=== PATIENT | female | born 1980 | race Caucasian/White ===

== ENCOUNTER 2016-05-15 13:17 | Emergency (ER) | END 2016-05-15 16:35 | disposition home or self-care (01) ==

== ENCOUNTER 2017-01-04 12:19 | Emergency (ER) | payer MEDICAID ==
[2017-01-04] MEDS ORDERED: KETOROLAC 60 MG/2 ML VIAL IM STA (13:18)
--- NOTE | 2017-01-04 13:21 | ED Physician Documentation ---
PD HPI UPPER EXT INJURY - Stated complaint Stated Complaint: BACK PX - Chief complaint Chief Complaint: Ext Problem - History obtained from History obtained from: Patient - History of Present Illness Location: Other (She has long-standing upper back pain which is worsened over the last few days because of a new job where she is lifting a lot. Suddenly got worse today while lifting a heavy bo.) Review of Systems Constitutional: denies: Fever, Chills Cardiac: denies: Chest pain / pressure, Palpitations Respiratory: denies: Dyspnea, Cough GI: denies: Abdominal Pain, Nausea : denies: Now [facility] PAST MEDICAL HISTORY - Past Medical History Past Medical History: Yes Cardiovascular: None Respiratory: None Neuro: Headache/migraine Endocrine/Autoimmune: None GI: Ulcers SHANK ARCHER: None : None HEENT: None Psych: None Musculoskeletal: Osteoarthritis Derm: None - Past Surgical History Past Surgical History: Yes /SHANK ARCHER: LEEP (Cervical surgery), Tubal ligation - Present Medications Home Medications: Ambulatory Orders Medication Instructions Recorded Confirmed Ibuprofen [Motrin] 600 mg PO Q8H PRN 05/15/16 01/04/17 Acetaminophen with Codeine 1 - 2 each PO Q6H PRN #15 tablet 01/04/17 [Tylenol with Codeine #3 Tablet] Cyclobenzaprine [Flexeril] 10 mg PO TID PRN #20 tablet 01/04/17 Methocarbamol [Robaxin] 500 mg PO Q8HR PRN 01/04/17 01/04/17 - Allergies Allergies/Adverse Reactions: Allergies Allergy/AdvReac Type Severity Reaction Status Date / Time levofloxacin [From Levaquin] Allergy Severe Respiratory Verified 01/04/17 12:26 - Social History Does the pt smoke?: Yes Smoking Status: Current every day smoker Does the pt drink ETOH?: Yes Does the pt have substance abuse?: Yes - Immunizations Immunizations are current?: Yes - POLST Patient has POLST: No PD ED PE NORMAL - Vitals Vital signs reviewed: Yes - General General: Alert and oriented X 3, No acute distress - Cardiac Cardiac: RRR, No murmur - Respiratory Respiratory: No respiratory distress, Clear bilaterally - Back Back: No spinal TTP, Other (She does have muscular tenderness to the parathoracic muscles) - Derm Derm: Normal color, Warm and dry - Extremities Extremities: Other (The patient has equal and normal Achilles and patellar reflexes bilaterally. Normal sensation in all areas of the legs. Patient denies saddle anesthesia. Normal strength in flexion-extension at the ankles, knees, and flexion of the hips.) Results - Vitals Vitals: Vital Signs - 24 hr 01/04/17 12:24 Temperature 36.3 C L Heart Rate 101 H Respiratory 16 Rate Blood Pressure 141/96 H O2 Saturation 100 Oxygen O2 Source Room air PD MEDICAL DECISION MAKING - ED course ED course: The [place] prescription monitoring program was queried with regard to this patient. No concerning findings were found. Departure - Departure Disposition: Home, Self Care Clinical Impression: Strain of back muscle Condition: Good Record reviewed to determine appropriate education?: Yes Instructions: ED Spasm Back No Trauma Prescriptions: Cyclobenzaprine [Flexeril] 10 mg PO TID PRN #20 tablet PRN Reason: Pain Acetaminophen with Codeine [Tylenol with Codeine #3 Tablet] 1 - 2 each PO Q6H PRN #15 tablet PRN Reason: pain Comments: Call your doctor to arrange a follow-up appointment, make the next available appointment. In the interim, return anytime if worse or if new symptoms develop. Your blood pressure was elevated today on check into the emergency department. This does not mean that you have hypertension, it is a common phenomenon to come to the emergency department and have elevated blood pressure. I recommend that she see her primary care physician within the week to have it rechecked when you are feeling better. Do not drink or drive while taking narcotic pain medication. Note that many narcotic pain relievers also contain Tylenol/acetaminophen. Please ensure that your total dose of acetaminophen from all sources does not exceed 3 g (3000 mg) per day. You may get constipated while on this medication. Take a stool softener such as Colace twice a day while you are on it. Also add an [id number] laxative such as senna or MiraLAX on any day that you do not have a bowel movement. If you received a narcotic pain medication or sedative while in the emergency department, do not drive for the next 24 hours. Forms: Activity restrictions
[2017-01-04] MEDS ORDERED: KETOROLAC 60 MG/2 ML VIAL ONE (13:33)
[2017-01-04 13:52] VITALS: BP 131/87
== END 2017-01-04 13:58 | disposition home or self-care (01) ==
LOC: ED 12:19
DX: S29.012A Strain of muscle and tendon of back wall of thorax, initial encounter (principal); X50.1XXA Overexertion from prolonged static or awkward postures, initial encounter; Y93.89 Activity, other specified; Y99.0 Civilian activity done for income or pay; F17.200 Nicotine dependence, unspecified, uncomplicated
CPT/HCPCS: 96372; 99282; 99283

== ENCOUNTER 2017-01-19 14:27 | Emergency (ER) | payer MEDICAID ==
[2017-01-19] MEDS ORDERED: KETOROLAC 60 MG/2 ML VIAL IM STA (15:25)
--- NOTE | 2017-01-19 15:29 | ED Physician Documentation ---
PD HPI BACK INJURY - Stated complaint Stated Complaint: LOW BACK PX - History obtained from History obtained from: Patient - History of Present Illness Location: Other (Developed sudden low back pain while bending over yesterday and has persistent sharp pain especially with motion ever since. There is no associated radiation, weakness, numbness, or tingling of the extremities or saddle anesthesia or incontinence. 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 CAPTAIN: None : None HEENT: None Psych: None Musculoskeletal: Osteoarthritis Derm: None - Past Surgical History Past Surgical History: Yes /SAILBOAT CAPTAIN: LEEP (Cervical surgery), Tubal ligation - Present Medications Home Medications: Ambulatory Orders Medication Instructions Recorded Confirmed Ibuprofen [Motrin] 600 mg PO Q8H PRN 05/15/16 01/04/17 Cyclobenzaprine [Flexeril] 10 mg PO TID PRN #20 tablet 01/04/17 Methocarbamol [Robaxin] 500 mg PO Q8HR PRN 01/04/17 01/04/17 diazePAM [Valium] 5 mg PO TID PRN #10 tablet 01/19/17 traMADol [Ultram] 50 mg PO Q4-6H PRN #10 tablet 01/19/17 - Allergies Allergies/Adverse Reactions: Allergies Allergy/AdvReac Type Severity Reaction Status Date / Time levofloxacin [From Levaquin] Allergy Severe Respiratory Verified 01/04/17 12:26 - Social History Does the pt smoke?: Yes Smoking Status: Current every day smoker Does the pt drink ETOH?: Yes Does the pt have substance abuse?: Yes - Immunizations Immunizations are current?: Yes - POLST Patient has POLST: No PD ED PE NORMAL - Vitals Vital signs reviewed: Yes - General General: Alert and oriented X 3, No acute distress, Other (Win[place] with motion) - Back Back: No spinal TTP, Other (Palpable high paralumbar back spasm) - Extremities Extremities: Other (The patient has equal and normal Achilles and patellar reflexes bilaterally. Normal sensation in all areas of the legs. Patient denies saddle anesthesia. Normal strength in flexion-extension at the ankles, knees, and flexion of the hips.) - Neuro Neuro: Alert and oriented X 3, Normal speech - Psych Psych: Normal mood, Normal affect Results - Vitals Vitals: Vital Signs - 24 hr 01/19/17 14:32 Temperature 37.0 C Heart Rate 90 Respiratory 18 Rate Blood Pressure 132/88 H O2 Saturation 100 Oxygen O2 Source Room air PD MEDICAL DECISION MAKING - ED course ED course: In the past we had some concerns about drug-seeking behavior, however she has not had any recent prescriptions for narcotics and no concerning findings on review of the [facility]. This patient has seemingly uncomplicated musculoskeletal back pain. The patient has no "red flags." Specifically denies IV drug use, fevers, incontinence, saddle anesthesia. Spinal epidural abscess was considered, given that the patient has no fever, is not diabetic, has no spinal tenderness, does not use IV drugs, and has no bilateral neurologic symptoms, the diagnosis of spinal epidural abscess is considered exceedingly unlikely. Departure - Departure Disposition: 01 Home, Self Care Clinical Impression: Strain of back muscle Condition: Good Record reviewed to determine appropriate education?: Yes Instructions: ED Low Back Pain Injury Prescriptions: traMADol [Ultram] 50 mg PO Q4-6H PRN #10 tablet PRN Reason: Pain diazePAM [Valium] 5 mg PO TID PRN #10 tablet PRN Reason: Spasms Comments: Do not take Flexeril with either of the prescription medications I am giving you. Your blood pressure was elevated today on check into the emergency department. This does not mean that you have hypertension, it is a common phenomenon to come to the emergency department and have elevated blood pressure. I recommend that she see your primary care physician within the week to have it rechecked when you are feeling better. Do not drink or drive while taking narcotic pain medication. Note that many narcotic pain relievers also contain Tylenol/acetaminophen. Please ensure that your total dose of acetaminophen from all sources does not exceed 3 g (3000 mg) per day. You may get constipated while on this medication. Take a stool softener such as Colace twice a day while you are on it. Also add an [id number] laxative such as senna or MiraLAX on any day that you do not have a bowel movement. If you received a narcotic pain medication or sedative while in the emergency department, do not drive for the next 24 hours.
[2017-01-19] MEDS ORDERED: KETOROLAC 60 MG/2 ML VIAL ONE (15:35)
[2017-01-19 15:51] VITALS: BP 133/95
== END 2017-01-19 15:49 | disposition home or self-care (01) ==
LOC: ED 14:27
DX: S39.012A Strain of muscle, fascia and tendon of lower back, initial encounter (principal); X50.1XXA Overexertion from prolonged static or awkward postures, initial encounter; F17.200 Nicotine dependence, unspecified, uncomplicated
CPT/HCPCS: 96372; 99283

== ENCOUNTER 2017-03-04 14:32 | Emergency (ER) | payer MEDICAID ==
[2017-03-04 14:44] VITALS: BP 136/93
--- NOTE | 2017-03-04 15:01 | ED Physician Documentation ---
PD HPI SKIN - Stated complaint Stated Complaint: RASH - Chief complaint Chief Complaint: Wound - History obtained from History obtained from: Patient - History of Present Illness Timing - onset: Other (Few days worth of itchy and annoying rash to the hands. She thinks it might be stress related. No throat swelling or shortness of breath.) Review of Systems Constitutional: denies: Fever, Chills Cardiac: denies: Palpitations Respiratory: denies: Dyspnea, Cough : denies: Now [facility] PAST MEDICAL HISTORY - Past Medical History Past Medical History: Yes Cardiovascular: None Respiratory: None Neuro: Headache/migraine Endocrine/Autoimmune: None GI: Ulcers FOLLOW UP MANAGER: None : None HEENT: None Psych: None Musculoskeletal: Osteoarthritis Derm: None - Past Surgical History Past Surgical History: Yes /FOLLOW UP MANAGER: LEEP (Cervical surgery), Tubal ligation - Present Medications Home Medications: Ambulatory Orders Medication Instructions Recorded Confirmed Ibuprofen [Motrin] 600 mg PO Q8H PRN 05/15/16 03/04/17 Cyclobenzaprine [Flexeril] 10 mg PO TID PRN #20 tablet 01/04/17 03/04/17 Triamcinolone 0.1% Oint [Kenalog 1 applic TOP TID 10 Days #1 bag 03/04/17 0.1% Oint] - Allergies Allergies/Adverse Reactions: Allergies Allergy/AdvReac Type Severity Reaction Status Date / Time levofloxacin [From Levaquin] Allergy Severe Respiratory Verified 03/04/17 14:44 - Social History Does the pt smoke?: Yes Smoking Status: Current every day smoker Does the pt drink ETOH?: Yes Does the pt have substance abuse?: Yes - Immunizations Immunizations are current?: Yes - POLST Patient has POLST: No PD ED PE NORMAL - Vitals Vital signs reviewed: Yes - General General: Alert and oriented X 3, No acute distress - HEENT HEENT: Pharynx benign - Derm Derm: Other (She has dyshidrotic eczema that is mild to moderate to both hands.) - Neuro Neuro: Alert and oriented X 3, Normal speech - Psych Psych: Normal mood, Normal affect Results - Vitals Vitals: Vital Signs - 24 hr 03/04/17 14:39 Temperature 36.3 C L Heart Rate 81 Respiratory 16 Rate Blood Pressure 136/93 H O2 Saturation 100 Oxygen O2 Source Room air Departure - Departure Disposition: 01 Home, Self Care Clinical Impression: Dyshidrotic eczema Condition: Good Record reviewed to determine appropriate education?: Yes Instructions: ED Dermatitis Atopic Eczema Prescriptions: Triamcinolone 0.1% Oint [Kenalog 0.1% Oint] 1 applic TOP TID 10 Days #1 bag Comments: Buy some cotton garden gloves, wear them at night after you put the cream on. Call your doctor to arrange a follow-up appointment, make the next available appointment. In the interim, return anytime if worse or if new symptoms develop. Your blood pressure was elevated today on check into the emergency department. This does not mean that you have hypertension, it is a common phenomenon to come to the emergency department and have elevated blood pressure. I recommend that you see your primary care physician within the week to have it rechecked when you are feeling better. Forms: Activity restrictions
== END 2017-03-04 15:09 | disposition home or self-care (01) ==
LOC: ED 14:32
DX: L30.1 Dyshidrosis [pompholyx] (principal); R03.0 Elevated blood-pressure reading, without diagnosis of hypertension
CPT/HCPCS: 99283

== ENCOUNTER 2017-05-12 16:22 | Emergency (ER) | payer MEDICAID ==
[2017-05-12 16:28] VITALS: BP 146/97
== END 2017-05-12 17:30 | disposition left against medical advice (07) ==
LOC: ED 16:22
DX: Z53.21 Procedure and treatment not carried out due to patient leaving prior to being seen by health care provider (principal)

== ENCOUNTER 2017-08-13 08:00 | Outpatient (CLI) | payer MEDICAID | END 2017-08-13 23:59 | disposition home or self-care (01) | LOC: LAB.R 08:00 | PROVIDERS: ATTEND Obstetrics & Gynecology | DX: Z11.3 Encounter for screening for infections with a predominantly sexual mode of transmission (principal); Z20.5 Contact with and (suspected) exposure to viral hepatitis | CPT/HCPCS: 87491; 87591 ==

== ENCOUNTER 2017-08-29 14:21 | Outpatient (CLI) | payer MEDICAID ==
[2017-08-30 13:32] LABS: HEPATITIS C ANTIBODY NON-REACTIVE (NON-REACTIVE)
[2017-08-30 15:01] LABS: HEPATITIS B SURFACE ANTIGEN NON-REACTIVE (NON-REACTIVE)
== END 2017-08-29 14:22 | disposition home or self-care (01) ==
LOC: LAB 14:21
PROVIDERS: ATTEND Obstetrics & Gynecology
DX: Z11.3 Encounter for screening for infections with a predominantly sexual mode of transmission (principal); Z20.5 Contact with and (suspected) exposure to viral hepatitis
CPT/HCPCS: 36415; 81599; 86592; 86803; 87340

== ENCOUNTER 2018-02-15 19:17 | Emergency (ER) | payer MEDICAID ==
[2018-02-15 19:29] VITALS: BP 133/89
[2018-02-15] MEDS ORDERED: IPRATROPIUM/ALBUTEROL 3 ML NEB INH STA (19:40)
[2018-02-15] MEDS ORDERED: BENZONATATE 100 MG CAPSULE PO STA (19:40)
[2018-02-15] MEDS ORDERED: predniSONE 20 MG TABLET PO STA (19:40)
--- NOTE | 2018-02-15 19:42 | ED Physician Documentation ---
PD HPI URI - Stated complaint Stated Complaint: COUGH/X3D - Chief complaint Chief Complaint: Resp - History obtained from History obtained from: Patient, Family - History of Present Illness Timing - onset: How many days ago (3) Timing duration: Days (3) Timing details: Gradual onset Pain level max: 4 Pain level now: 4 Associated symptoms: Fever (subjective), Nasal congestion, Rhinorrhea, Sore throat, Dry cough, Dyspnea (wheezing). No: Ear pain, Hemoptysis, Chest pain Contributing factors: Sick contact Improves by: Rest Worsened by: Activity, Breathing Recently seen: Not recently seen Review of Systems Constitutional: denies: Fever, Chills Nose: reports: Rhinorrhea / runny nose, Congestion Respiratory: reports: Dyspnea, Cough, Wheezing GI: denies: Abdominal Pain, Nausea, Vomiting, Diarrhea Skin: denies: Rash Musculoskeletal: denies: Neck pain, Back pain Neurologic: denies: Headache PD PAST MEDICAL HISTORY - Past Medical History Past Medical History: Yes Cardiovascular: None Respiratory: None Neuro: None Endocrine/Autoimmune: None GI: Ulcers ANALYSIS LEAD: None : None HEENT: None Psych: None Musculoskeletal: Osteoarthritis Derm: None - Past Surgical History Past Surgical History: Yes /ANALYSIS LEAD: LEEP (Cervical surgery), Tubal ligation - Present Medications Home Medications: Ambulatory Orders Medication Instructions Recorded Confirmed Ibuprofen [Motrin] 600 mg PO Q8H PRN 05/15/16 03/04/17 Cyclobenzaprine [Flexeril] 10 mg PO TID PRN #20 tablet 01/04/17 03/04/17 Triamcinolone 0.1% Oint [Kenalog 1 applic TOP TID 10 Days #1 bag 03/04/17 0.1% Oint] Albuterol Sulf [Ventolin Hfa 1 - 2 puffs INH Q4HR PRN #1 inhaler 02/15/18 Inhaler] Benzonatate [Tessalon Perle] 100 - 200 mg PO TID PRN #30 capsule 02/15/18 Cetirizine HCl/Pseudoephedrine 1 each PO BID PRN #30 tab.er.12h 02/15/18 [Zyrtec-D Tablet] predniSONE [Prednisone] 40 mg PO DAILY #10 tablet 02/15/18 - Allergies Allergies/Adverse Reactions: Allergies Allergy/AdvReac Type Severity Reaction Status Date / Time levofloxacin [From Levaquin] Allergy Severe Respiratory Verified 02/15/18 19:28 - Social History Does the pt smoke?: Yes Smoking Status: Current every day smoker Does the pt drink ETOH?: Yes Does the pt have substance abuse?: Yes - Immunizations Immunizations are current?: Yes - POLST Patient has POLST: No PD ED PE NORMAL - Vitals Vital signs reviewed: Yes - General General: Alert and oriented X 3, No acute distress - HEENT HEENT: Moist mucous membranes - Neck Neck: Supple, no meningeal sign - Cardiac Cardiac: RRR, Strong equal pulses - Respiratory Respiratory: No respiratory distress, Other (wheezing B) - Abdomen Abdomen: Soft, Non tender, Non distended - Back Back: No spinal TTP - Derm Derm: Warm and dry - Extremities Extremities: No edema - Neuro Neuro: Alert and oriented X 3 Results - Vitals Vitals: Vital Signs - 24 hr 02/15/18 19:25 Temperature 37.1 C Heart Rate 89 Respiratory 17 Rate Blood Pressure 133/89 H O2 Saturation 100 Oxygen O2 Source Room air PD MEDICAL DECISION MAKING - ED course Complexity details: reviewed results, re-evaluated patient, considered differential, d/w patient ED course: Patient is a 37-year-old female who presents to the emergency department with what appears to be a viral upper respiratory infection. She is well-appearing, nontoxic. Afebrile. Feels better after nebulizer treatment. Will continue supportive care and follow-up with her doctor. No evidence of pneumonia clinically. No hypoxia. Patient counseled regarding signs and symptoms for which I believe and urgent re-evaluation would be necessary. Patient with good understanding of and agreement to plan and is comfortable going home at this time This document was made in part using voice recognition software. While efforts are made to proofread this document, sound alike and grammatical errors may occur. - Sepsis Event Vital Signs: Vital Signs - 24 hr 02/15/18 19:25 Temperature 37.1 C Heart Rate 89 Respiratory 17 Rate Blood Pressure 133/89 H O2 Saturation 100 Oxygen O2 Source Room air Departure - Departure Disposition: 01 Home, Self Care Clinical Impression: Viral URI Condition: Good Instructions: ED URI Viral Follow-Up: Emilee Perez MD [Primary Care Provider] - Within 1 week Prescriptions: Albuterol Sulf [Ventolin Hfa Inhaler] 1 - 2 puffs INH Q4HR PRN #1 inhaler PRN Reason: Shortness Of Air/Wheezing Benzonatate [Tessalon Perle] 100 - 200 mg PO TID PRN #30 capsule PRN Reason: Cough Cetirizine HCl/Pseudoephedrine [Zyrtec-D Tablet] 1 each PO BID PRN #30 tab.er.12h PRN Reason: Nasal Congestion predniSONE [Prednisone] 40 mg PO DAILY #10 tablet Comments: Return if you worsen. Take the medications as prescribed. This cough will likely at least 2 weeks. Forms: Activity restrictions Discharge Date/Time: 02/15/18 20:12
[2018-02-15] MEDS ORDERED: ONDANSETRON ODT 4 MG TABLET TL STA (20:05)
== END 2018-02-15 20:12 | disposition home or self-care (01) ==
LOC: ED 19:17
DX: J06.9 Acute upper respiratory infection, unspecified (principal); B34.9 Viral infection, unspecified; F17.200 Nicotine dependence, unspecified, uncomplicated
CPT/HCPCS: 94640; 94664; 99283; A9270; J7512; Q0162

== ENCOUNTER 2018-11-12 14:50 | Emergency (ER) | payer MEDICAID | END 2018-11-12 14:58 | disposition left against medical advice (07) | LOC: ED 14:50 | DX: Z53.21 Procedure and treatment not carried out due to patient leaving prior to being seen by health care provider (principal) ==

== ENCOUNTER 2018-11-13 15:02 | Emergency (ER) | payer MEDICAID ==
[2018-11-13 15:10] VITALS: BP 130/76
[2018-11-13] MEDS ORDERED: IPRATROPIUM/ALBUTEROL 3 ML NEB INH STA (15:25)
[2018-11-13] MEDS ORDERED: predniSONE 20 MG TABLET PO STA (15:25)
[2018-11-13] MEDS ORDERED: PSEUDOEPHEDRINE 30 MG TABLET PO STA (15:28)
--- NOTE | 2018-11-13 15:31 | ED Physician Documentation ---
History of Present Illness - Stated complaint Stated Complaint: SINUS PX/HEADACHE - Chief complaint Chief Complaint: Heent - History obtained from History obtained from: Patient - History of Present Illness Timing: How many days ago (3) Pain level max: 5 Pain level now: 3 Improved by: rest Worsened by: exertion - Additonal information Additional information: 30-year-old female presents to the emergency department with rhinorrhea, congestion and coughing for the past 2 to 3 days. Has been taking Tylenol Cold without relief. No fevers. No vomiting. No abdominal pain. Mild sore throat. Denies any possibility of . 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: None : None HEENT: None Psych: None Musculoskeletal: Osteoarthritis Derm: None - Past Surgical History Past Surgical History: Yes /WATCH PARTS GRINDER: LEEP (Cervical surgery), Tubal ligation - Present Medications Home Medications: Ambulatory Orders Medication Instructions Recorded Confirmed Albuterol Sulf [Ventolin Hfa 1 - 2 puffs INH Q4HR PRN #1 inhaler 11/13/18 Inhaler] Benzonatate [Tessalon Perle] 100 - 200 mg PO TID PRN #30 capsule 11/13/18 Cetirizine HCl/Pseudoephedrine 1 each PO BID PRN #30 tab.er.12h 11/13/18 [Zyrtec-D Tablet] predniSONE [Deltasone] 10 mg PO [id number] #42 tab 11/13/18 - Allergies Allergies/Adverse Reactions: Allergies Allergy/AdvReac Type Severity Reaction Status Date / Time levofloxacin [From Levaquin] Allergy Severe Respiratory Verified 11/13/18 15:14 - Social History Does the pt smoke?: Yes Smoking Status: Current every day smoker Does the pt drink ETOH?: Yes Does the pt have substance abuse?: Yes Substance Use and Type: Marijuana - Immunizations Immunizations are current?: Yes - POLST Patient has POLST: No PD ED PE NORMAL - Vitals Vital signs reviewed: Yes - General General: Alert and oriented X 3, No acute distress - HEENT HEENT: Ears normal, Moist mucous membranes, Pharynx benign, Other (Mild sinus tenderness) - Neck Neck: Supple, no meningeal sign - Cardiac Cardiac: RRR - Respiratory Respiratory: No respiratory distress, Other (Wheezing bilaterally) - Abdomen Abdomen: Soft, Non tender, Non distended - Derm Derm: Warm and dry - Neuro Neuro: Alert and oriented X 3 Results - Vitals Vitals: Vital Signs - 24 hr 11/13/18 15:06 Temperature 36.5 C Heart Rate 94 Respiratory 16 Rate Blood Pressure 130/76 O2 Saturation 100 Oxygen O2 Source Room air PD MEDICAL DECISION MAKING - ED course Complexity details: reviewed old records, reviewed results, re-evaluated patient, considered differential, d/w patient ED course: 38-year-old female with what appears to be a viral URI with wheezing. Will place on steroids as well as decongestants. Will also place on cough medication. Will refill her albuterol. Feels better after nebulizer treatment here. No indication for antibiotics at this time. Patient counseled regarding signs and symptoms for which I believe and urgent re-evaluation would be necessary. Patient with good understanding of and agreement to plan and is co mfortable going home at this time This document was made in part using voice recognition software. While efforts are made to proofread this document, sound alike and grammatical errors may occur. Departure - Departure Disposition: 01 Home, Self Care Clinical Impression: Viral URI with cough Condition: Good Instructions: ED URI Viral W Wheezing Follow-Up: Emilee Perez MD [Primary Care Provider] - Within 1 week Prescriptions: Albuterol Sulf [Ventolin Hfa Inhaler] 1 - 2 puffs INH Q4HR PRN #1 inhaler PRN Reason: Shortness Of Air/Wheezing Benzonatate [Tessalon Perle] 100 - 200 mg PO TID PRN #30 capsule PRN Reason: Cough Cetirizine HCl/Pseudoephedrine [Zyrtec-D Tablet] 1 each PO BID PRN #30 tab.er.12h PRN Reason: nasal congestion predniSONE [Deltasone] 10 mg PO [id number] #42 tab Comments: Return if you worsen. Follow-up with your doctor for further care. Drink plenty of fluids and rest. Forms: Activity restrictions
== END 2018-11-13 16:04 | disposition home or self-care (01) ==
LOC: ED 15:02
DX: J06.9 Acute upper respiratory infection, unspecified (principal); F17.200 Nicotine dependence, unspecified, uncomplicated
CPT/HCPCS: 94640; 99283; A9270; J7512

== ENCOUNTER 2019-02-10 11:16 | Emergency (ER) | payer MEDICAID ==
[2019-02-10 11:22] VITALS: BP 146/90
[2019-02-10 12:05] LABS: BASOPHILS # (AUTO) 0.1 10^3/uL (0.0-0.1); BASOPHILS % (AUTO) 0.8 %; EOSINOPHILS # (AUTO) 0.2 10^3/uL (0.0-0.7); EOSINOPHILS % (AUTO) 2.4 %; HGB - HEMOGLOBIN 13.7 g/dL (12.0-16.0); LYMPHOCYTES # (AUTO) 2.3 10^3/uL (1.5-3.5); LYMPHOCYTES % (AUTO) 31.7 %; MEAN CORPUSCULAR HEMOGLOBIN 30.7 pg (27.0-31.0); MEAN CORPUSCULAR HGB CONC 32.6 g/dL (32.0-36.0); MEAN CORPUSCULAR VOLUME 94.2 fL (81.0-99.0); MEAN PLATELET VOLUME 9.3 fL (7.9-10.8); MONOCYTES # (AUTO) 0.5 10^3/uL (0.0-1.0); MONOCYTES % (AUTO) 6.5 %; NEUTROPHILS # (AUTO) 4.2 10^3/uL (1.5-6.6); NEUTROPHILS % (AUTO) 58.3 %; PLT - PLATELET COUNT 313 10^3/uL (130-450); RED BLOOD COUNT 4.46 10^6/uL (4.20-5.40); RED CELL DISTRIBUTION WIDTH 12.9 % (12.0-15.0); WHITE BLOOD COUNT 7.1 x10^3/uL (4.8-10.8)
[2019-02-10 12:09] LABS: BILIRUBIN,URINE NEGATIVE (NEGATIVE); GLUCOSE, URINE (UA) NEGATIVE (NEGATIVE); KETONES,URINE (UA) NEGATIVE (NEGATIVE); LEUKOCYTE ESTERASE, URINE TRACE (NEGATIVE); NITRITE,URINE POSITIVE (NEGATIVE); OCCULT BLOOD,URINE NEGATIVE (NEGATIVE); PH,URINE 6.5 PH (5.0-7.5); PROTEIN,URINE NEGATIVE (NEGATIVE); UROBILINOGEN,URINE 0.2 (NORMAL) E.U./dL (NORMAL)
[2019-02-10 12:11] LABS: CLARITY,URINE HAZY (CLEAR)
[2019-02-10 12:12] LABS: HCG UR QUAL NEGATIVE
[2019-02-10 12:16] LABS: ALBUMIN 3.7 g/dL (3.2-5.5); ALBUMIN/GLOBULIN RATIO 1.4 (1.0-2.2); BILIRUBIN,TOTAL 0.2 mg/dL (0.2-1.0); CALCIUM 8.6 mg/dL (8.5-10.3); CREATININE 0.6 mg/dL (0.4-1.0); TOTAL PROTEIN 6.3 g/dL (6.7-8.2)
[2019-02-10 12:22] LABS: RBC,URINE 0-5 /HPF (0-5)
[2019-02-10 12:23] LABS: AMORPHOUS SEDIMENT,UR Few /LPF; BACTERIA,URINE Many /HPF (None Seen); SQUAMOUS EPITHELIAL CELL,UR MANY Squamous (<= Few)
--- NOTE | 2019-02-10 12:55 | ED Physician Documentation ---
PD HPI NVD - Stated complaint Stated Complaint: SIDE PAIN, PAIN WITH URINATION - Chief complaint Chief Complaint: Abd Pain - History obtained from History obtained from: Patient - History of Present Illness Timing - onset: How many days ago (2-3) Timing - duration: Days (2-3) Timing - details: Gradual onset Pain level max: 4 Pain level now: 3 Associated symptoms: Abdominal pain (suprapubic), Dysuria. 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 : None HEENT: None Psych: None Musculoskeletal: Osteoarthritis Derm: None - Past Surgical History Past Surgical History: Yes /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: LEEP (Cervical surgery), Tubal ligation - Present Medications Home Medications: Ambulatory Orders Medication Instructions Recorded Confirmed Albuterol Sulf [Ventolin Hfa 1 - 2 puffs INH Q4HR PRN #1 inhaler 11/13/18 Inhaler] Benzonatate [Tessalon Perle] 100 - 200 mg PO TID PRN #30 capsule 11/13/18 Cetirizine HCl/Pseudoephedrine 1 each PO BID PRN #30 tab.er.12h 11/13/18 [Zyrtec-D Tablet] predniSONE [Deltasone] 10 mg PO [id number] #42 tab 11/13/18 cephALEXin [Cephalexin] 500 mg PO QID #20 tablet 02/10/19 - Allergies Allergies/Adverse Reactions: Allergies Allergy/AdvReac Type Severity Reaction Status Date / Time levofloxacin [From Levaquin] Allergy Severe Respiratory Verified 02/10/19 11:22 - Social History Does the pt smoke?: Yes Smoking Status: Current every day smoker Does the pt drink ETOH?: Yes Does the pt have substance abuse?: Yes - Immunizations Immunizations are current?: Yes - POLST Patient has POLST: No PD ED PE NORMAL - Vitals Vital signs reviewed: Yes - General General: Alert and oriented X 3, No acute distress - HEENT HEENT: Moist mucous membranes - Neck Neck: Supple, no meningeal sign - Cardiac Cardiac: RRR - Respiratory Respiratory: No respiratory distress, Clear bilaterally - Abdomen Abdomen: Other (Mild suprapubic tender to palpation. No peritoneal signs.) - Back Back: No CVA TTP - Derm Derm: Warm and dry - Neuro Neuro: Alert and oriented X 3 - Psych Psych: Normal mood, Normal affect Results - Vitals Vitals: Vital Signs - 24 hr 02/10/19 11:21 Temperature 36.5 C Heart Rate 90 Respiratory 20 Rate Blood Pressure 146/90 H O2 Saturation 100 Oxygen O2 Source Room air - Labs Labs: Laboratory Tests 02/10/19 02/10/19 02/10/19 11:20 11:57 11:57 WBC 7.1 RBC 4.46 Hgb 13.7 Hct 42.0 MCV 94.2 MCH 30.7 MCHC 32.6 RDW 12.9 Plt Count 313 MPV 9.3 Neut # (Auto) 4.2 Lymph # (Auto) 2.3 [place] # (Auto) 0.5 Eos # (Auto) 0.2 Baso # (Auto) 0.1 Absolute Nucleated RBC 0.00 Nucleated RBC % 0.0 Sodium 140 Potassium 4.4 Chloride 107 Carbon Dioxide 26 Anion Gap 7.0 BUN 12 Creatinine 0.6 Estimated GFR (MDRD) 112 Glucose 83 Calcium 8.6 Total Bilirubin 0.2 AST 19 ALT 14 Alkaline Phosphatase 43 Total Protein 6.3 L Albumin 3.7 Globulin 2.6 Albumin/Globulin Ratio 1.4 Lipase 20 L Urine Color LT. YELLOW Urine Clarity HAZY Urine pH 6.5 Ur Specific [place] 1.020 Urine Protein NEGATIVE Urine Glucose (UA) NEGATIVE Urine Ketones NEGATIVE Urine Occult Blood NEGATIVE Urine Nitrite POSITIVE H Urine Bilirubin NEGATIVE Urine Urobilinogen 0.2 (NORMAL) Ur Leukocyte Esterase TRACE H Urine RBC 0-5 Urine WBC 6-10 H Ur Squamous Epith Cells MANY Squamous H Amorphous Sediment Few Urine Bacteria Many H Ur Microscopic Review INDICATED Urine Culture Comments NOT INDICATED Urine HCG, Qual NEGATIVE PD MEDICAL DECISION MAKING - ED course Complexity details: reviewed results, considered differential, d/w patient ED course: Patient with a UTI. No evidence of pyelonephritis. No evidence of sepsis. Will place on antibiotics. Pt will follow-up with her doctor for further care. She is well-appearing, nontoxic. Patient counseled regarding signs and symptoms for which I believe and urgent re-evaluation would be necessary. Patient with good understanding of and agreement to plan and is comfortable going home at this time This document was made in part using voice recognition software. While efforts are made to proofread this document, sound alike and grammatical errors may occur. Departure - Departure Disposition: Home, Self Care Clinical Impression: UTI (urinary tract infection) Qualifiers: Urinary tract infection type: acute cystitis Hematuria presence: without hem aturia Qualified Code(s): N30.00 - Acute cystitis without hematuria Condition: Good Instructions: ED UTI Cystitis Female Follow-Up: Emilee Perez MD [Primary Care Provider] - As Needed Prescriptions: cephALEXin [Cephalexin] 500 mg PO QID #20 tablet Comments: Take all antibiotics until gone. Return if you worsen. Follow-up with your doctor as needed.
== END 2019-02-10 13:20 | disposition home or self-care (01) ==
LOC: ED 11:16
DX: N30.00 Acute cystitis without hematuria (principal); F17.200 Nicotine dependence, unspecified, uncomplicated
CPT/HCPCS: 36415; 80053; 81001; 81003; 81025; 83690; 85025; 87086; 99283; 99284

== ENCOUNTER 2019-08-29 01:05 | Outpatient (CLI) | payer MEDICAID | END 2019-08-29 01:06 | disposition critical access hospital (66) | LOC: EMS 01:05 | PROVIDERS: ATTEND Surgery | DX: R07.89 Other chest pain (principal); R06.02 Shortness of breath | CPT/HCPCS: A0425; A0427; A0999 ==

== ENCOUNTER 2019-08-29 01:37 | Emergency (ER) | payer MEDICAID ==
[2019-08-29] MEDS ORDERED: SODIUM CHLORIDE 0.9% 1,000 ML IV ONE (01:52)
[2019-08-29 02:01] LABS: BASOPHILS # (AUTO) 0.1 10^3/uL (0.0-0.1); BASOPHILS % (AUTO) 0.8 %; EOSINOPHILS # (AUTO) 0.1 10^3/uL (0.0-0.7); EOSINOPHILS % (AUTO) 1.2 %; HGB - HEMOGLOBIN 14.8 g/dL (12.0-16.0); LYMPHOCYTES # (AUTO) 3.2 10^3/uL (1.5-3.5); LYMPHOCYTES % (AUTO) 36.5 %; MEAN CORPUSCULAR HEMOGLOBIN 31.4 pg (27.0-31.0); MEAN CORPUSCULAR VOLUME 92.4 fL (81.0-99.0); MEAN PLATELET VOLUME 9.5 fL (7.9-10.8); MONOCYTES # (AUTO) 0.6 10^3/uL (0.0-1.0); MONOCYTES % (AUTO) 6.9 %; NEUTROPHILS # (AUTO) 4.7 10^3/uL (1.5-6.6); NEUTROPHILS % (AUTO) 54.1 %; PLT - PLATELET COUNT 347 10^3/uL (130-450); RED BLOOD COUNT 4.71 10^6/uL (4.20-5.40); RED CELL DISTRIBUTION WIDTH 13.3 % (12.0-15.0); WHITE BLOOD COUNT 8.7 x10^3/uL (4.8-10.8)
[2019-08-29 02:15] LABS: ALBUMIN 4.2 g/dL (3.2-5.5); ALBUMIN/GLOBULIN RATIO 1.4 (1.0-2.2); BILIRUBIN,TOTAL 0.4 mg/dL (0.2-1.0); CALCIUM 9.2 mg/dL (8.5-10.3); CREATININE 0.6 mg/dL (0.4-1.0); TOTAL PROTEIN 7.2 g/dL (6.7-8.2)
--- NOTE | 2019-08-29 02:38 | ED Physician Documentation ---
History of Present Illness - Stated complaint Stated Complaint: SOA/ CP - Chief complaint Chief Complaint: Cardiac - History obtained from History obtained from: Patient - Additonal information Additional information: Patient comes emergency department complaining of shortness of breath and anxiety with feeling of heart racing. She states that she had a beer and took an unknown pill which she thinks might of been fentanyl. She also did 2 lines of cocaine. Patient decided to go to bed shortly thereafter and then began to feel as though her heart was racing. This was approximately 30 minutes after doing the cocaine.No chest pain. Review of Systems Ten Systems: 10 systems reviewed and negative Constitutional: reports: Reviewed and negative Eyes: reports: Reviewed and negative Ears: reports: Reviewed and negative Nose: reports: Reviewed and negative Throat: reports: Reviewed and negative Cardiac: reports: Palpitations Respiratory: reports: Reviewed and negative GI: reports: Reviewed and negative : reports: Reviewed and negative Skin: reports: Reviewed and negative Musculoskeletal: reports: Reviewed and negative Neurologic: reports: Reviewed and negative Psychiatric: reports: Reviewed and negative Endocrine: reports: Reviewed and negative Immunocompromised: reports: Reviewed and negative PD PAST MEDICAL HISTORY - Past Medical History Past Medical History: Yes Cardiovascular: None Respiratory: None Neuro: None Endocrine/Autoimmune: None GI: Ulcers SAP 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: None : None HEENT: None Psych: None Musculoskeletal: Osteoarthritis Derm: None - Past Surgical History 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 Surgical History: Yes /SAP SPECIALIST: LEEP (Cervical surgery), Tubal ligation - Present Medications Home Medications: Ambulatory Orders Medication Instructions Recorded Confirmed Albuterol Sulf [Ventolin Hfa 1 - 2 puffs INH Q4HR PRN #1 inhaler 11/13/18 Inhaler] Benzonatate [Tessalon Perle] 100 - 200 mg PO TID PRN #30 capsule 11/13/18 Cetirizine HCl/Pseudoephedrine 1 each PO BID PRN #30 tab.er.12h 11/13/18 [Zyrtec-D Tablet] predniSONE [Deltasone] 10 mg PO [id number] #42 tab 11/13/18 cephALEXin [Cephalexin] 500 mg PO QID #20 tablet 02/10/19 - Allergies Allergies/Adverse Reactions: Allergies Allergy/AdvReac Type Severity Reaction Status Date / Time levofloxacin [From Levaquin] Allergy Severe Respiratory Verified 08/29/19 01:52 - Social History Does the pt smoke?: Yes Smoking Status: Current every day smoker Does the pt drink ETOH?: Yes Does the pt have substance abuse?: Yes - Immunizations Immunizations are current?: Yes - POLST Patient has POLST: No PD ED PE NORMAL - Vitals Vital signs reviewed: Yes - General General: Alert and oriented X 3, No acute distress, Well developed/nourished, Other (Pt appears slightly anxious) - HEENT HEENT: Atraumatic, PERRL, EOMI, Moist mucous membranes - Neck Neck: Supple, no meningeal sign - Cardiac Cardiac: RRR, No murmur, Strong equal pulses - Respiratory Respiratory: No respiratory distress, Clear bilaterally - Abdomen Abdomen: Normal bowel sounds, Soft, Non tender, Non distended - Derm Derm: Normal color, Warm and dry, No rash - Extremities Extremities: No deformity, No edema, No calf tenderness / cord - Neuro Neuro: Alert and oriented X 3, 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 management 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 consultant 2-12 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, No motor deficit, No sensory deficit, Normal speech - Psych Psych: Normal mood, Normal affect Results - Vitals Vitals: Vital Signs - 24 hr 08/29/19 08/29/19 01:40 02:39 Temperature 36.7 C Heart Rate 115 H 99 Respiratory 26 H 18 Rate Blood Pressure 132/90 H 129/84 H O2 Saturation 100 99 Oxygen O2 Source Room air - EKG (time done) 0146 Rate: Rate (enter#) (108) Rhythm: Sinus tachycardia, LAE [place]: Normal Intervals: Normal MS QRS: Normal Ischemia: Normal ST segments Compare to prior EKG: Old EKG unavailable - Labs Labs: Laboratory Tests 08/29/19 08/29/19 08/29/19 01:45 01:45 01:45 WBC 8.7 RBC 4.71 Hgb 14.8 Hct 43.5 MCV 92.4 MCH 31.4 H MCHC 34.0 RDW 13.3 Plt Count 347 MPV 9.5 Neut # (Auto) 4.7 Lymph # (Auto) 3.2 [place] # (Auto) 0.6 Eos # (Auto) 0.1 Baso # (Auto) 0.1 Absolute Nucleated RBC 0.00 Nucleated RBC % 0.0 Sodium 135 Potassium 3.0 L Chloride 97 L Carbon Dioxide 25 Anion Gap 13.0 BUN 12 Creatinine 0.6 Estimated GFR (MDRD) 112 Glucose 179 H Calcium 9.2 Total Bilirubin 0.4 AST 41 ALT 30 Alkaline Phosphatase 60 Troponin I High Sens 3.0 Total Protein 7.2 Albumin 4.2 Globulin 3.0 Albumin/Globulin Ratio 1.4 Lipase 22 PD MEDICAL DECISION MAKING - ED course Complexity details: reviewed results, re-evaluated patient, considered differential, d/w patient ED course: PT was worked up with labs and EKG, which were unremarkable. She was found to be calmer and feeling better, and I felt she was stable for d/c home. I have counseled her regarding the risks of cocaine and general drug use. Departure - Departure Disposition: 01 Home, Self Care Clinical Impression: Anxiety, Palpitations, Cocaine abuse Instructions: ED Drug Abuse General, ED Palpitations Discharge Date/Time: 08/29/19 02:46
[2019-08-29 02:39] VITALS: BP 129/84
== END 2019-08-29 02:46 | disposition home or self-care (01) ==
LOC: EDUNIT# → EDBD → ED 01:37
DX: F41.9 Anxiety disorder, unspecified (principal); R00.2 Palpitations; F14.10 Cocaine abuse, uncomplicated; F17.200 Nicotine dependence, unspecified, uncomplicated
CPT/HCPCS: 36415; 80053; 83690; 84484; 85025; 93005; 96360; 99284

== ENCOUNTER 2020-12-19 00:22 | Emergency (ER) | payer MEDICAID ==
[2020-12-19] MEDS ORDERED: ACETAMINOPHEN 325 MG TABLET PO STA (00:34)
[2020-12-19] MEDS ORDERED: KETOROLAC 30 MG/ML VIAL IM STA (02:18)
[2020-12-19] MEDS ORDERED: methocarbamoL 500 MG TABLET PO STA (02:18)
--- NOTE | 2020-12-19 02:19 | ED Physician Documentation ---
History of Present Illness - Stated complaint Stated Complaint: FELL OFF BOAT ONTO DOCK - Chief complaint Chief Complaint: Trauma Ch/Bk - History obtained from History obtained from: Patient - Additonal information Additional information: 40-year-old woman presents with sudden onset pain after slipping getting boat and hitting her left rib cage. Constant, aching, worse with deep breathing and cough, moderate severity. No other injuries. No shortness of breath. 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 : None HEENT: None Psych: None Musculoskeletal: Osteoarthritis Derm: None - Past Surgical History Past Surgical History: Yes /VICE PRESIDENT LENDING: LEEP (Cervical surgery), Tubal ligation - Present Medications Home Medications: Ambulatory Orders Medication Instructions Recorded Confirmed Albuterol Sulf [Ventolin Hfa 1 - 2 puffs INH Q4HR PRN #1 inhaler 11/13/18 Inhaler] Benzonatate [Tessalon Perle] 100 - 200 mg PO TID PRN #30 capsule 11/13/18 Cetirizine HCl/Pseudoephedrine 1 each PO BID PRN #30 tab.er.12h 11/13/18 [Zyrtec-D Tablet] predniSONE [Deltasone] 10 mg PO [id number] #42 tab 11/13/18 cephALEXin [Cephalexin] 500 mg PO QID #20 tablet 02/10/19 Amox/Clav 875/125 [Augmentin] 1 each PO Q12H #20 tablet 10/16/19 Hydrocodone/Acetaminophen 1 - 2 each PO Q6H PRN #10 tablet 10/16/19 [Hydrocodon-Acetaminophen 5-325] Ondansetron Odt [Zofran] 4 mg TL Q6H PRN #10 tablet 10/16/19 metroNIDAZOLE [Flagyl] 500 mg PO BID #20 tablet 10/16/19 Oxycodone HCl/Acetaminophen 1 each PO Q4H PRN #10 tablet 12/19/20 [Percocet 10-325 mg Tablet] - Allergies Allergies/Adverse Reactions: Allergies Allergy/AdvReac Type Severity Reaction Status Date / Time levofloxacin [From Levaquin] Allergy Severe Respiratory Verified 12/19/20 00:25 - Social History Does the pt smoke?: Yes Smoking Status: Current every day smoker Does the pt drink ETOH?: Yes Does the pt have substance abuse?: Yes - Immunizations Immunizations are current?: Yes - POLST Patient has POLST: No PD ED PE NORMAL - Vitals Vital signs reviewed: Yes - General General: Alert and oriented X 3, No acute distress, Well developed/nourished - HEENT HEENT: Atraumatic, PERRL, EOMI - Neck Neck: No bony TTP - Cardiac Cardiac: RRR, Other (Left lateral chest wall tender to palpation) - Respiratory Respiratory: No respiratory distress, Clear bilaterally - Abdomen Abdomen: Non tender, Non distended - Derm Derm: Normal color - Extremities Extremities: No deformity, Normal ROM s pain - Neuro Neuro: Alert and oriented X 3 Results - Vitals Vitals: Vital Signs - 24 hr 12/19/20 12/19/20 12/19/20 00:26 01:46 02:40 Temperature 36.5 C 36.5 C 36.6 C Heart Rate 100 99 89 Respiratory 16 16 17 Rate Blood Pressure 147/95 H 148/96 H 142/89 H O2 Saturation 100 100 99 Oxygen O2 Source Room air PD MEDICAL DECISION MAKING - ED course ED course: 40-year-old woman presents with left chest wall pain after a fall. X-rays noncontributory however I suspect occult fracture. Offered to have respiratory therapy see her and give her incentive spirometer but she declined saying she would prefer to go home and get some rest. Pain medication, education, and return precautions given. Departure - Departure Disposition: 01 Home, Self Care Clinical Impression: Rib pain on left side Condition: Good Instructions: ED Contusion Chest Wall Prescriptions: Oxycodone HCl/Acetaminophen [Percocet 10-325 mg Tablet] 1 each PO Q4H PRN #10 tablet PRN Reason: Pain Comments: X-rayHe was seen in the emergency department for pain along her chest wall. You did not break any ribs. Please take ibuprofen or Aleve 600 mg every 6 hours as needed for pain with a little snack. Return to the emergency department if you have any new or worsening symptoms or other concerns. Follow-up with your primary doctor this week. Discharge Date/Time: 12/19/20 02:53
[2020-12-19] MEDS ORDERED: oxyCODONE/ACET 5/325 Prepack 4 PO STA (02:32)
[2020-12-19 02:41] VITALS: BP 142/89
[2020-12-19] MEDS ORDERED: HYDROmorphone 0.5 MG/0.5 ML SYRINGE IM STA (02:43)
--- NOTE | 2020-12-19 08:03 | XRAY Report ---
PROCEDURE: Chest 2 View X-Ray INDICATIONS: L rib pain TECHNIQUE: 2 view(s) of the chest. COMPARISON: None. FINDINGS: Surgical changes and devices: None. Lungs and pleura: No pleural effusions or pneumothorax. Lungs are clear. Mediastinum: Mediastinal contours are normal. Heart size is normal. Bones and chest wall: No suspicious bony abnormalities. Age-appropriate degenerative changes are see n. No displaced rib fractures are seen. However, the inferior ribs are not well seen secondary to o verlying soft tissue. Soft tissues appear unremarkable. IMPRESSION: No displaced rib fracture or pneumothorax is seen. If there is strong clinical concern for a clinically significant rib fracture, please consider dedica tabitha rib series or CT for further evaluation. Note: No significant discrepancy from the preliminary report. Reviewed by: Jd Keller MD on 12/19/2020 7:02 AM CH[facility]STINA Approved by: Jd Keller MD on 12/19/2020 7:02 AM CHRISTINA Station ID: [id number]
== END 2020-12-19 02:53 | disposition home or self-care (01) ==
LOC: ED 00:22
DX: R07.81 Pleurodynia (principal); F17.200 Nicotine dependence, unspecified, uncomplicated
CPT/HCPCS: 71046; 96372; 96374; 99283; A9270; J1170

== ENCOUNTER 2020-12-20 17:43 | Emergency (ER) | payer MEDICAID ==
[2020-12-20] MEDS ORDERED: methocarbamoL 500 MG TABLET PO STA (18:31)
--- NOTE | 2020-12-20 18:41 | XRAY Report ---
PROCEDURE: Ribs w/PA Chest LT INDICATIONS: fall, L chest pain TECHNIQUE: 3 views of the left ribs were acquired, along with a single view chest. COMPARISON: CXR 12/19/2020. FINDINGS: Surgical changes and devices: None. Bones and chest wall: Left 8-9th rib fractures. Mild displacement. No suspicious bony lesions. Over lying soft tissues appear unremarkable. Lungs and pleura: No pleural effusions or pneumothorax. Lungs appear clear. Mediastinum: Mediastinal contours appear normal. Heart size is normal. IMPRESSION: Left 8-9th rib fractures identified. Reviewed by: Francisco Jhaveri MD on 12/20/2020 6:40 PM PDT Approved by: Francisco Jhaveri MD on 12/20/2020 6:40 PM PDT Station ID: [id number]
[2020-12-20] MEDS ORDERED: LIDOCAINE PATCH 5% TOP STA (18:47)
--- NOTE | 2020-12-20 18:50 | ED Physician Documentation ---
History of Present Illness - Stated complaint Stated Complaint: FALL - Chief complaint Chief Complaint: General - History obtained from History obtained from: Patient - History of Present Illness Timing: Yesterday Pain level max: 8 Pain level now: 8 - Additonal information Additional information: Patient is a 40-year-old female who fell off of a boat yesterday landed on a dock. Complains of left-sided rib pain. Worse with movement, better with rest. She states she had an x-ray and was told there were no rib fractures at that time seen. She states that the pain has continued today. She is taking Percocet for pain. Is requesting a muscle relaxant as well. No abdominal pain. No nausea or vomiting. No hematuria. 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 : None HEENT: None Psych: None Musculoskeletal: Osteoarthritis Derm: None - Past Surgical History Past Surgical History: Yes /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: LEEP (Cervical surgery), Tubal ligation - Present Medications Home Medications: Ambulatory Orders Medication Instructions Recorded Confirmed Oxycodone HCl/Acetaminophen 1 each PO Q4H PRN #10 tablet 12/19/20 12/20/20 [Percocet 10-325 mg Tablet] Aspirin/Acetaminophen/Caffeine 1 each PO Q6HR PRN 12/20/20 12/20/20 [Excedrin Migraine Caplet] Esomeprazole Magnesium [Nexium 20 mg PO DAILY 12/20/20 12/20/20 24Hr] Lidocaine Patch 5% [Lidoderm Patch] 1 patch TOP DAILY PRN #10 patch 12/20/20 methocarbamoL [Robaxin] 500 mg PO Q6H PRN #20 tablet 12/20/20 - Allergies Allergies/Adverse Reactions: Allergies Allergy/AdvReac Type Severity Reaction Status Date / Time levofloxacin [From Levaquin] Allergy Severe Respiratory Verified 12/19/20 00:25 - Social History Does the pt smoke?: Yes Smoking Status: Current every day smoker Does the pt drink ETOH?: Yes ETOH Use: Beer Does the pt have substance abuse?: No - Immunizations Immunizations are current?: Yes - POLST Patient has POLST: No PD ED PE NORMAL - Vitals Vital signs reviewed: Yes - General General: Alert and oriented X 3, No acute distress - HEENT HEENT: Atraumatic, PERRL, Moist mucous membranes - Neck Neck: Supple, no meningeal sign, No bony TTP - Cardiac Cardiac: RRR - Respiratory Respiratory: No respiratory distress, Clear bilaterally - Abdomen Abdomen: Soft, Non tender, Non distended - Back Back: No CVA TTP, No spinal TTP (No midline tenderness to palpation or percussion. No step-off or deformity. There is a bruise to the left flank.) - Derm Derm: Warm and dry - Extremities Extremities: No edema, Other (Tender to palpation over the left lower ribs. No crepitus. Mainly posterior and mid axillary line) - Neuro Neuro: Alert and oriented X 3, parks recreation coordinator 2-12 intact, No motor deficit, No sensory deficit, Normal speech Results - Vitals Vitals: Vital Signs - 24 hr 12/20/20 12/20/20 17:51 19:02 Temperature 36.8 C 36.8 C Heart Rate 89 85 Respiratory 16 16 Rate Blood Pressure 135/73 H 146/82 H O2 Saturation 97 98 Oxygen O2 Source Room air - Rads (name of study) Left rib x-rays Radiology: Final report received, EMP read contemporaneously, See rad report (Eighth and ninth rib fractures) PD MEDICAL DECISION MAKING - ED course Complexity details: reviewed old records, reviewed results, re-evaluated patient, considered differential, d/w patient, d/w family ED course: 40-year-old female with 2 rib fractures after a fall. Pain well controlled. Has Percocet for home. We will add a muscle relaxant and Lidoderm patches. No evidence of significant intra-abdominal injury. No indication for CT. No pneumothorax or hemothorax. Patient counseled regarding signs and symptoms for which I believe and urgent re-evaluation would be necessary. Patient with good understanding of and agreement to plan and is comfortable going home at this time This document was made in part using voice recognition software. While efforts are made to proofread this document, sound alike and grammatical errors may occur. Departure - Departure Disposition: 01 Home, Self Care Clinical Impression: Rib fractures Qualifiers: Encounter type: initial encounter Fracture type: closed Laterality: left Qualified Code(s): S22.42XA - Multiple fractures of ribs, left side, initial encounter for closed fracture Condition: Good Instructions: ED Fx Rib Follow-Up: your,doctor in 3 days [Other] Prescriptions: Lidocaine Patch 5% [Lidoderm Patch] 1 patch TOP DAILY PRN #10 patch PRN Reason: pain methocarbamoL [Robaxin] 500 mg PO Q6H PRN #20 tablet PRN Reason: muscle spasm Comments: We will add a muscle relaxant and a Lidoderm patch to your pain control at home. You do have a left eighth and ninth rib fracture. These will heal on their own but may take several weeks. Follow-up with your doctor for further care. Return if you worsen. Discharge Date/Time: 12/20/20 19:29
[2020-12-20 19:02] VITALS: BP 146/82
[2020-12-20] MEDS ORDERED: oxyCODONE 5 MG TABLET PO STA (19:23)
== END 2020-12-20 19:29 | disposition home or self-care (01) ==
LOC: ED 17:43
DX: F17.200 Nicotine dependence, unspecified, uncomplicated (principal); S22.42XA Multiple fractures of ribs, left side, initial encounter for closed fracture; V94.0XXA Hitting object or bottom of body of water due to fall from watercraft, initial encounter; Y92.89 Other specified places as the place of occurrence of the external cause
CPT/HCPCS: 71101; 99283; 99284; A9270

== ENCOUNTER 2022-08-15 03:54 | Outpatient (CLI) | payer MEDICAID | END 2022-08-15 23:59 | disposition EMS.NT | LOC: EMS 03:54 | DX: M25.512 Pain in left shoulder (principal) ==

== ENCOUNTER 2022-08-15 12:59 | Emergency (ER) | payer MEDICAID ==
[2022-08-15 13:05] VITALS: BP 146/107
--- NOTE | 2022-08-15 14:01 | XRAY Report ---
PROCEDURE: Shoulder 3 View LT INDICATIONS: fell, shoved-fell on left shoulder. TECHNIQUE: 3 views of the shoulder were acquired. COMPARISON: None. FINDINGS: Bones: No fractures or dislocations. No suspicious bony lesions. Visualized ribs appear intact. Soft tissues: No suspicious soft tissue calcifications. IMPRESSION: No visualized acute fracture or dislocation. However, occult injury cannot be excluded. Recommend short interval imaging follow-up in 7-10 days as clinically indicated for additional evalua tion. Reviewed by: Irina Sy MD on 08/15/2022 2:00 PM PDT Approved by: Irina yS MD on 08/15/2022 2:00 PM PDT Station ID: [id number]
--- NOTE | 2022-08-15 14:40 | ED Physician Documentation ---
PD HPI UPPER EXT INJURY - Stated complaint Stated Complaint: L SHOULDER INJ - Chief complaint Chief Complaint: Ext Problem - History obtained from History obtained from: Patient PD PAST MEDICAL HISTORY - Past Medical History Cardiovascular: None Respiratory: None Neuro: None Endocrine/Autoimmune: None GI: GERD, Ulcers SUMMER ASSOCIATE: None : None HEENT: None Psych: None Musculoskeletal: Osteoarthritis Derm: None - Past Surgical History Past Surgical History: Yes /SUMMER ASSOCIATE: LEEP (Cervical surgery), Tubal ligation - Present Medications Home Medications: Ambulatory Orders Medication Instructions Recorded Confirmed Esomeprazole Magnesium [Nexium 20 mg PO DAILY 12/20/20 12/20/20 24Hr] - Allergies Allergies/Adverse Reactions: Allergies Allergy/AdvReac Type Severity Reaction Status Date / Time levofloxacin [From Levaquin] Allergy Severe Respiratory Verified 08/15/22 13:05 - Social History Does the pt smoke?: Yes Smoking Status: Current every day smoker Does the pt drink ETOH?: Yes Does the pt have substance abuse?: No - Immunizations Immunizations are current?: Yes - POLST Patient has POLST: No Results - Vitals Vitals: Vital Signs - 24 hr 08/15/22 13:01 Temperature 36.1 C L Heart Rate 118 H Respiratory 20 Rate Blood Pressure 146/107 H O2 Saturation 98 Oxygen O2 Source Room air Departure - Departure Disposition: 01 Home, Self Care Clinical Impression: Shoulder strain, Fall Condition: Stable Record reviewed to determine appropriate education?: Yes Follow-Up: Emilee Perez MD [Primary Care Provider] - Comments: I did talk with the patient after her x-ray. There was no fractures seen or dislocation. Examination showed it to be sturdy in location. There is pain on rotator cuff movements but no laxity. She was mostly concerned about fracture and was happy with the conclusion of no no breaks. Was to give her a sling. She apparently left before receiving that but she seemed comfortable without. Verbal instructions had been for her to take Tylenol ibuprofen and gentle range of motion and progress activity as tolerated. Discharge Date/Time: 08/15/22 15:06
== END 2022-08-15 15:06 | disposition home or self-care (01) ==
LOC: ED 12:59
DX: S46.912A Strain of unspecified muscle, fascia and tendon at shoulder and upper arm level, left arm, initial encounter (principal); W03.XXXA Other fall on same level due to collision with another person, initial encounter; F17.200 Nicotine dependence, unspecified, uncomplicated
CPT/HCPCS: 99283

== ENCOUNTER 2023-04-08 16:58 | Emergency (ER) | payer MEDICAID ==
[2023-04-08 17:22] VITALS: BP 160/114; O2SAT 98
--- NOTE | 2023-04-08 17:45 | ED Physician Documentation ---
History of Present Illness - Stated complaint Stated Complaint: ITCHY/FEELING MOVEMENT UNDER SKIN - Chief complaint Chief Complaint: General - History obtained from History obtained from: Patient - History of Present Illness Timing: Today Pain level max: 0 Pain level now: 0 - Additonal information Additional information: Patient is a 42-year-old female who presents to the emergency department stating that she last used methamphetamine today. She states that she feels like there are worms coming out of her scalp, eyes, eyelids. She states that she did ask another individual if they saw the worms as well, they stated that they did, but they were using methamphetamine at the time as well. No fevers. No chills. Nothing makes it better or worse. Review of Systems Constitutional: denies: Fever, Chills Nose: denies: Rhinorrhea / runny nose, Congestion Respiratory: denies: Cough : denies: Dysuria Skin: denies: Rash Musculoskeletal: denies: Neck pain, Back pain Neurologic: denies: Headache PD PAST MEDICAL HISTORY - Past Medical History Cardiovascular: None Respiratory: None Neuro: None Endocrine/Autoimmune: None GI: GERD, Ulcers COMBATANT SWIMMER: None : None HEENT: None Psych: None Musculoskeletal: Osteoarthritis Derm: None - Past Surgical History Past Surgical History: Yes /COMBATANT SWIMMER: LEEP (Cervical surgery), Tubal ligation - Present Medications Home Medications: Ambulatory Orders Medication Instructions Recorded Confirmed Esomeprazole Magnesium [Nexium 20 mg PO DAILY 12/20/20 12/20/20 24Hr] - Allergies Allergies/Adverse Reactions: Allergies Allergy/AdvReac Type Severity Reaction Status Date / Time levofloxacin [From Levaquin] Allergy Severe Respiratory Verified 08/15/22 13:05 - Social History Does the pt smoke?: Yes Smoking Status: Current every day smoker Does the pt drink ETOH?: Yes Does the pt have substance abuse?: No Substance Use and Type: Meth - Immunizations Immunizations are current?: Yes - POLST Patient has POLST: No PD ED PE NORMAL - Vitals Vital signs reviewed: Yes - General General: Alert and oriented X 3, No acute distress - HEENT HEENT: Atraumatic, PERRL, Moist mucous membranes - Neck Neck: Supple, no meningeal sign - Cardiac Cardiac: RRR - Respiratory Respiratory: No respiratory distress, Clear bilaterally - Derm Derm: Warm and dry, No rash - Neuro Neuro: Alert and oriented X 3 - Psych Psych: Normal mood, Normal affect - Free text exam Free text exam: I checked the patient's skin at length including her scalp, eyelids, eyelids were everted. Intraoral. Skin on her wrists, ankles, back, abdomen. There is no evidence of parasites or parasitosis. There is no excoriation. No tunnels. Results - Vitals Vitals: Vital Signs - 24 hr 04/08/23 17:11 Temperature 36.9 C Heart Rate 127 H Respiratory 20 Rate Blood Pressure 160/114 H O2 Saturation 98 Oxygen O2 Source Room air PD Medical Decision Making - ED course Complexity details: considered differential, d/w patient ED course: Patient has no evidence of acute parasite infestation. There are no worms coming out of her eyes scalp or other parts of her body. 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 Patient counseled regarding signs and symptoms for which I believe and urgent re-evaluation would be necessary. Patient with good understanding of and agreement to plan and is comfortable going home at this time This document was made in part using voice recognition software. While efforts are made to proofread this document, sound alike and grammatical errors may occur. Departure - Departure Disposition: 01 Home, Self Care Clinical Impression: Methamphetamine abuse, Ekbom's delusional parasitosis Condition: Stable Instructions: ED Drug Abuse General Follow-Up: Your,doctor in 1 week [Other] Comments: There is no evidence of parasites today on evaluation. Please follow-up with your doctor for further care. Please stop using methamphetamines. Forms: PCP List Discharge Date/Time: 04/08/23 17:49
== END 2023-04-08 17:49 | disposition home or self-care (01) ==
LOC: ED 16:58
DX: F15.10 Other stimulant abuse, uncomplicated (principal); F22 Delusional disorders; F17.200 Nicotine dependence, unspecified, uncomplicated
CPT/HCPCS: 99282